=== PATIENT | female | born 1990 | race Caucasian/White ===

== ENCOUNTER 2023-03-02 08:10 | Emergency (ER) | payer MEDICAID ==
[~2023-03-02] VITALS: Ht 152.4 cm; Wt 57.0 kg
[2023-03-02 08:23] VITALS: O2SAT 100
[2023-03-02 11:23] VITALS: BP 104/54; PULSE 60; RESP 18; TEMP 98.4
== END 2023-03-02 11:24 | disposition home or self-care (01) ==
LOC: ER 08:21
DX: M79.604 Pain in right leg (principal); Z98.890 Other specified postprocedural states
CPT/HCPCS: 93971; 99284